=== PATIENT | female | born 1985 | race African-American/Black ===

== ENCOUNTER 2022-04-19 13:14 | Emergency (ER) | payer OTHER, MEDICAID ==
[2022-04-19] MEDS ORDERED: Ibuprofen 800 MG TAB ONE (14:21)
== END 2022-04-19 14:50 | disposition home or self-care (01) ==
LOC: BURERS 13:14
DX: S16.1XXA Strain of muscle, fascia and tendon at neck level, initial encounter (principal); S80.01XA Contusion of right knee, initial encounter; S60.032A Contusion of left middle finger without damage to nail, initial encounter; W01.0XXA Fall on same level from slipping, tripping and stumbling without subsequent striking against object, initial encounter